=== PATIENT | female | born 1990 | race African-American/Black ===

== ENCOUNTER 2018-08-13 20:46 | Inpatient (IN) ==
[2018-08-13] MEDS ORDERED: DUONEB (A & A) INH ONE (22:44)
[2018-08-13] MEDS ORDERED: NS 1,000 ML IV ONE (22:44)
[2018-08-13 23:58] LABS: HEMATOCRIT 34.9 % (37.0-47.0); HEMOGLOBIN 11.5 g/dL (12.0-16.0); LYMPH% 49.7 % (20.5-51.1); MCH 27.9 PG (27-31); MCV 84.7 FL (81-99); MPV 9.2 FL (7.4-10.4); NEUT% 43.2 % (42.2-75.2); PLT 354 X1000 (130-400); RBC 4.12 XMIL (4.2-5.4); RDW 12.9 % (11.5-14.5); WBC 10.76 X1000 (4.8-10.8)
[2018-08-13 23:59] LABS: BASO# 0.05 X1000 (0.0-0.2); BASO% 0.5 % (0.0-0.8); EOS# 0.28 X1000 (0.0-0.7); EOS% 2.6 % (0.0-10.0); IMM GRAN# 0.01 X1000 (0.0-0.04); IMM GRAN% 0.1 % (0.0-0.5); LYMPH# 5.35 X1000 (1.2-3.4); MONO# 0.42 X1000 (0.11-0.59); MONO% 3.9 % (1.7-9.3); NEUT# 4.65 X1000 (1.4-6.5)
[2018-08-14 00:21] LABS: AGAP 13; ALKALINE PHOSPHATASE 74 U/L (32-104); BUN 13 mg/dL (8-22); CALCIUM 9.1 mg/dL (8.8-10.2); CHLORIDE 102 mmol/L (98-107); COSMO 281; CREATININE 0.5 mg/dL (0.5-0.9); ESTIMATED GFR > 60; GLUCOSE 155 mg/dL (70-104); GOT 19 U/L (10-30); GPT 26 U/L (10-36); POTASSIUM 4.4 mmol/L (3.5-5.1); SODIUM 139 mmol/L (136-145); TCO2 24 mmol/L (25-35); TOTAL PROTEIN 7.6 g/dL (6.3-8.3)
--- NOTE | 2018-08-14 01:11 | EKG Report ---
Test Performed on : 08/13/2018 9:47:33 PM Test Reason : chest pain Blood Pressure : / mmHG Vent. Rate : 108 BPM Atrial Rate : 108 BPM P-R Int : 148 ms QRS Dur : 090 ms QT Int : 366 ms P-R-T Axes : 067 026 014 degrees QTc Int : 490 ms Sinus tachycardia. Possible Left atrial enlargement Nonspecific T wave abnormality Abnormal ECG When compared with ECG of 26-MAR-2018 22:10, No significant change was found Unconfirmed Result
[2018-08-14] MEDS ORDERED: LEVAQUIN 750 MG/D5W 750 MG/150 ML IVPB IV ONE (02:07)
[2018-08-14] MEDS ORDERED: NS 1,000 ML IV ONE (02:19)
[2018-08-14] MEDS ORDERED: ZOFRAN IV PRN (02:19)
[2018-08-14] MEDS ORDERED: TYLENOL PO PRN (02:19)
[2018-08-14] MEDS ORDERED: TORADOL IV PRN (02:19)
--- NOTE | 2018-08-14 02:24 | PROVIDER DOCUMENTATION ---
This chart was entered by Domenica Jones Scribe, acting as scribe for Edi Mcmahan MD. HPI-Respiratory General - General Chief Complaint: Chest Pain Stated Complaint: CHEST PAIN, SOB Time Seen by Provider: 08/13/18 22:31 Source: patient Allergies/Adverse Reactions: Patient Allergies Allergy/AdvReac Type Severity Reaction Status Date / Time No Known Allergies Allergy Verified 03/26/18 22:06 Home Medications: Home Medication List Medication Instructions Recorded Confirmed Last Taken Type Levofloxacin [Levaquin] 750 mg PO DAILY #15 tab 11/21/17 Unknown Rx Lisinopril [Zestril] 20 mg PO DAILY #30 tab 11/21/17 Unknown Rx Metformin [Glucophage] 500 mg PO BID #60 tab 11/21/17 Unknown Rx Acetaminophen [Tylenol] 500 mg PO Q4H PRN PRN #20 tablet 05/18/18 Unknown Rx Sulfamethoxazole/Trimethoprim 1 each PO BID #10 tablet 05/18/18 Unknown Rx [Bactrim Ds Tablet] Clindamycin [Cleocin] 150 mg PO Q6HR #30 cap 05/22/18 Unknown Rx Ibuprofen [Motrin] 800 mg PO Q8H PRN PRN #20 tab 05/22/18 Unknown Rx - History of Present Illness-Resp Nature of Presenting Problem: 28yof presents to ED cc SOB, chronic cough, fatigue and chest pain for last 3 nights that is worse when she is trying to sleep. Pt denies N/V/D or fever. Pt has hx of HTN and DM. Quality of Pain: reports: tightness Severity in ED: reports: mild Onset/Duration: reports: 3 days ago Timing: reports: still present, changing over time Cough Quality/Degree: reports: moderate Current Respiratory Medication Therapy: Initiated see nurses note Modifying Factors: worse with: exertion, coughing, lying down Associated Symptoms: reports: chest pain/soreness, cough, shortness of breath Similar Symptoms Previously?: No Recently seen or treated by another doctor?: No Review of Systems - Adult - REVIEW OF SYSTEMS - ADULT Constitutional: reports: see HPI, fatique. denies: chills, fever Eyes: reports: no symptoms reported Ears, Nose, Mouth & Throat: reports: no symptoms reported Cardiovascular: reports: see HPI, chest pain. denies: heart murmur, syncope Respiratory: reports: see HPI, chronic cough, shortness of breath. denies: excessive sputum production, hemoptysis Gastrointestinal: reports: no symptoms reported Genitourinary: reports: no symptoms reported Musculoskeletal: reports: no symptoms reported Integumentary: reports: no symptoms reported Neurological: reports: no symptoms reported Psychiatric: reports: no symptoms reported Endocrine: reports: no symptoms reported Hematologic/Lymphatic: reports: no symptoms reported Allergic/Immunologic: reports: no symptoms reported All Other Systems: Reviewed and Negative Past History - Adult - PAST MEDICAL HISTORY-ADULT Review of Records: reports: Nursing Assessment Review, Medications Reviewed, Social history reviewed & non-contributory. Major Childhood Illnesses: reports: denies history Cardiovascular: reports: denies history Respiratory: reports: denies history Gastrointestinal: reports: denies history Obstetrical/Gynecological: reports: denies history Genitourinary: reports: denies history Musculoskeletal: reports: chronic pain Neurological: reports: headaches/migraines Endocrine/Immune: reports: Diabetes (gestational only) Other Conditions: reports: denies history - PRIOR SURGERIES/PROCEDURES Surgical/Procedure History: reports: none - IMMUNIZATION STATUS Childhood Immunizations: See Nurse Assessment Flu Vaccine: See Nurse Assessment - FAMILY HISTORY Family History: reviewed, not pertinent - SOCIAL HISTORY Smoking: cigarettes, greater than 1 pack/day Provider spent 3-5 mins advising pt. on dangers of tobacco.: Discussed manners to quit use, and f/u contacts for add'l counseling. Physical Exam-General - PHYSICAL EXAM-ADULT Initial Vital Signs Reviewed: Yes - CONSTITUTIONAL General Appearance: appears well, alert. negative: anxious, combative - EYES Eyes: PERRL/EOMI, pink conjunctivae. negative: photophobia - HEAD, EARS, NOSE, MOUTH & THROAT HENMT: moist mucous membranes, normal ENT inspection. negative: angioedema - NECK Neck: non-tender, full range of motion, supple, normal inspection. negative: Brudzinski's sign, carotid bruit - CARDIOVASCULAR Cardiovascular: normal peripheral pulses, no edema, no gallop, no JVD, no murmur , tachycardia. negative: regular rate, rhythm, bradycardia - GASTROINTESTINAL (ABDOMEN) Abdominal Exam: normal bowel sounds, non tender, soft, no organomegaly. negative: rigid, rebound, tenderness - LYMPHATIC Lymphatic: no adenopathy. negative: striations - MUSCULOSKELETAL Back Exam: normal inspection. negative: swelling Extremity: normal range of motion, normal inspection. negative: deformity - SKIN Integumentary: normal color, normal turgor, warm/dry. negative: diaphoresis, jaundice - NEUROLOGIC Neurologic: science intern II-XII nml as tested, grossly normal, no motor/sensory deficits. negative: facial droop, focal weakness - PSYCHIATRIC Psych/Mental Status: normal mood/affect, normal thought content, normal thought process, oriented x 3. negative: anxious Progress - PLAN OF CARE/RESULTS Progress/Plan/Lab Results: Vital Signs - 8 hr 08/13/18 21:15 08/13/18 21:20 08/13/18 22:45 Temperature 98.6 F Pulse Rate 110 H 108 H Respiratory Rate 20 22 Blood Pressure 131/82 O2 Sat by Pulse Oximetry 95 91 L 08/13/18 23:20 Temperature Pulse Rate 103 H Respiratory Rate Blood Pressure O2 Sat by Pulse Oximetry 93 L Bedside Urine ED: Urine Bedside Start: 08/13/18 23:34 Freq: ORDERED Status: Active Protocol: Activity Type Activity Date Activity User E-Sign Co-Sign Detail Recorded Client Recorded Date Recorded By Document 08/14/18 00:19 [id number] 08/14/18 00:22 [id number] 08/14/18 00:19 Point of Care [Bedside Point of Care] -Lot # [id number] - Results Negative -Control Line Visible? Yes Laboratory Results - last 24 hr 08/13/18 08/13/18 08/13/18 00:16 22:44 23:30 WBC RBC Hgb Hct MCV MCH MCHC RDW Std Deviation Plt Count MPV Immature Gran % (Auto) Neut % (Auto) Lymph % (Auto) Lincoln % (Auto) Eos % (Auto) Baso % (Auto) Immature Gran # (Auto) Neut # (Auto) Lymph # (Auto) Lincoln # (Auto) Eos # (Auto) Baso # (Auto) D-Dimer, Quantitative 3.10 H Sodium Potassium Chloride Carbon Dioxide Anion Gap BUN Creatinine Estimated GFR/1.73 m2 BUN/Creatinine Ratio Glucose POC Glucose 146 H Calculated Osmolality Calcium Total Bilirubin AST ALT Alkaline Phosphatase Troponin T < 0.010 Total Protein Albumin Globulin Albumin/Globulin Ratio 08/13/18 08/13/18 23:30 23:30 WBC 10.76 RBC 4.12 L Hgb 11.5 L Hct 34.9 L MCV 84.7 MCH 27.9 MCHC 33.0 RDW Std Deviation 12.9 Plt Count 354 MPV 9.2 Immature Gran % (Auto) 0.1 Neut % (Auto) 43.2 Lymph % (Auto) 49.7 Lincoln % (Auto) 3.9 Eos % (Auto) 2.6 Baso % (Auto) 0.5 Immature Gran # (Auto) 0.01 Neut # (Auto) 4.65 Lymph # (Auto) 5.35 H Lincoln # (Auto) 0.42 Eos # (Auto) 0.28 Baso # (Auto) 0.05 D-Dimer, Quantitative Sodium 139 Potassium 4.4 Chloride 102 Carbon Dioxide 24 L Anion Gap 13 BUN 13 Creatinine 0.5 Estimated GFR/1.73 m2 > 60 BUN/Creatinine Ratio 26 Glucose 155 H POC Glucose Calculated Osmolality 281 Calcium 9.1 Total Bilirubin 0.50 AST 19 ALT 26 Alkaline Phosphatase 74 Troponin T Total Protein 7.6 Albumin 4.0 Globulin 4.0 Albumin/Globulin Ratio 1.0 Orders Category Date Time Status Admit - [facility] Routine AdmDCTranf 08/14/18 02:19 Active Activity - Bed Rest with BRP ORDERED Care 08/14/18 02:19 Active Call Admitting on Arrival AT ADMISSION Care 08/14/18 02:20 Active ED: Urine Bedside ORDERED Care 08/13/18 23:34 Active FSBS/Accucheck Result NOW Care 08/13/18 22:44 Active Resuscitation Status Routine Care 08/14/18 02:19 Ordered Saline Loc DIRECTED Care 08/14/18 02:19 Active Vital Signs Order ROUTINE Care 08/14/18 02:19 Active Z-Document. for Tele Applied ORDERED Care 08/14/18 02:20 Active Regular Diet Diet 08/14/18 02:[address] ANGIOGRM PULMONARY ARTERIES [CT] Stat Exams 08/14/18 00:43 Ordered cxr [CHEST-1 VIEW] [RAD] Stat Exams 08/13/18 22:44 Taken BLOOD CULTURE [BLDCUL] Stat Lab 08/14/18 02:08 Ordered CBC WITH ELECTRONIC DIFF [HEME] Stat Lab 08/13/18 23:30 Completed CK PROFILE [SP CHEM] Stat Lab 08/14/18 02:18 Ordered COMPREHENSIVE METABOLIC PANEL [CHEM] Stat Lab 08/13/18 23:30 Completed D-DIMER [COAG] Stat Lab 08/14/18 00:10 Completed LACTATE, PLASMA [CHEM] Lab 08/14/18 02:30 Uncollected LACTATE, PLASMA [CHEM] Lab 08/14/18 05:30 Uncollected LACTATE, PLASMA [CHEM] Lab 08/14/18 08:30 Uncollected PROTIME WITH INR [COAG] Stat Lab 08/14/18 02:18 Ordered PTT [COAG] Stat Lab 08/14/18 02:18 Ordered TROPONIN T Stat Lab 08/13/18 23:30 Completed TROPONIN T Stat Lab 08/14/18 02:[address] W/POSS RFLX CULT [URINALYSIS] Stat Lab 08/14/18 02:18 Uncollected 0.9% Sodium Chloride Inj [Ns] 1,000 ml Med 08/14/18 02:19 Ordered IV 100 mls/hr 0.9% Sodium Chloride Inj [Ns] 1,000 ml Med 08/13/18 22:44 Discontinued IV 999 mls/hr Acetaminophen [Tylenol] Med 08/14/18 02:19 Ordered 650 mg PO Q6H PRN PRN Albuterol 2.5MG/Ipratrop 0.5MG [Duoneb (A & A)] Med 08/13/18 22:44 Discontinued 3 ml INH NOW ONE Ketorolac [Toradol] Med 08/14/18 02:19 Ordered 15 mg IV Q4H PRN PRN Levofloxacin 750 mg/D5w [Levaquin 750 mg/D5w] Med 08/14/18 02:07 Active 750 mg in 150 ml IV NOW Morphine Med 08/14/18 02:19 Ordered 2 mg IV Q2H PRN PRN Ondansetron [Zofran] Med 08/14/18 02:19 Ordered 4 mg IV Q4H PRN PRN Aerosol Treatments Routine Oth 08/13/18 22:45 Completed Aerosol Treatments Stat Oth 08/13/18 22:45 Completed Oxygen Device Routine Oth 08/14/18 02:20 Active Telemetry [OM.EQ] Routine Oth 08/14/18 02:19 Active EKG [EKG] Stat Ther 08/13/18 21:20 Draft Transfer/Admit Order [TRANSFER] Routine Transfer 08/14/18 02:22 Ordered Result Diagrams: 08/13/18 23:30 08/13/18 23:30 - EKG 1 Time of EKG reading by physician:: 23:00 EKG Read and Signed by:: Edi Mcmahan EKG Interpretation (*Must complete 3 of following elements*): Abnormal (possible left atrial enlargement) Rate: 108 Rhythm: sinus tachycardia QRS: normal ST Wave: non-specific ST changes Departure - Departure Date of Disposition Decision: 08/14/18 Time of Disposition Decision: 02:23 DIAGNOSIS: Pneumonia Qualifiers: Pneumonia type: due to unspecified organism Laterality: right Lung location: upper lobe of lung Qualified Code(s): J18.1 - Lobar pneumonia, unspecified organism Disposition: ADMITTED INPATIENT 09 Certified Medical Emergency: Emergent Condition: Stable Referrals and Follow-Ups: None,PCP [Primary Care Provider] - - Critical Care Note This patient required my direct & personal management of CC.: No Attestation - Physician/ FAUSTO Attestation Patient care was provided by Advanced Practice Provider:: No The physician spent face to face time with patient:: Yes Advanced Practice Provider documentation review:: Supervising physician onsite and consulted in the evaluation and care of this patient. The physician did have a face to face encounter with the patient. This chart was documented by the indicated scribe, (Domenica Jones Scribe) and accurately reflects the services I performed and decisions made by me, Edi Mcmahan MD, as attested by the provider's signature.
[2018-08-14 02:37] LABS: INR 0.92; PROTIME 12.8 Seconds (11.0-16.0)
[2018-08-14 02:38] LABS: PTT 28.5 Seconds (22.3-41.8)
[2018-08-14 03:30] LABS: BILIRUBIN URINE NEGATIVE (NEGATIVE); BLOOD URINE NEGATIVE (NEGATIVE); CLARITY CLEAR (CLEAR); COLOR YELLOW; GLUCOSE URINE NEGATIVE (NEGATIVE); KETONE URINE NEGATIVE (NEGATIVE); PROTEIN URINE TRACE mg/dL (NEGATIVE); URINE EPITHELIAL CELLS >10 /HPF (<10); URINE RBC <10 /HPF (<10); URINE SOURCE CLEAN CATCH; URINE WBC <10 /HPF (<10); UROBILINOGEN URINE NORMAL
[2018-08-14 03:31] LABS: LEUKOCYTES URINE NEGATIVE (NEGATIVE); NITRITE URINE NEGATIVE (NEGATIVE)
[2018-08-14] MEDS: MORPHINE IV PRN ×3 (06:00→20:33)
--- NOTE | 2018-08-14 07:30 | Diag Imaging Result Doc PS360 ---
EXAM: CT ANGIOGRAM PULMONARY ARTERIES - 08/14/2018 HISTORY: difficulty breathing, left arm swollen TECHNIQUE: CT angiogram pulmonary arteries with intravenous contrast. Axial, 2-D coronal, and 3-D MIP images are obtained. COMPARISON: 03/27/2018 FINDINGS: Pulmonary artery opacification is mildly suboptimal, and there are artifacts from motion which limit detail at the lung bases. There are no filling defects identified in the pulmonary arteries. There is no indication of aortic dissection. Heart size is enlarged increased from prior. There are relatively diffuse groundglass pulmonary opacities most prominent at the lower lobes. There is some patchy pulmonary opacities at the right upper lobe. There are small bilateral pleural effusions. These findings suggest pulmonary edema/congestive heart failure. There is mild prominence of bilateral axillary lymph nodes. IMPRESSION: No evidence of pulmonary embolism. Findings which are suggestive of pulmonary edema/congestive heart failure. Pneumonia is not excluded, however. Mildly prominent bilateral axillary lymph nodes. The montessori preschool teacher radiologist provided preliminary results at 1:41 AM on 08/14/2018. Electronically signed by Gary Teran 08/14/2018 7:28 AM
--- NOTE | 2018-08-14 07:33 | Diag Imaging Result Doc PS360 ---
EXAM: CHEST-1 VIEW - 08/13/2018 HISTORY: sob TECHNIQUE: Portable chest COMPARISON: 11/18/2017 FINDINGS: Heart size appears enlarged and increased from prior. Inspiration is mildly shallow. There are ill-defined bilateral pulmonary opacities. There is no large pleural effusion or pneumothorax identified. IMPRESSION: Findings which may relate to pulmonary edema/congestive heart failure. Pneumonitis is not excluded, however. Electronically signed by Gary Teran 08/14/2018 7:30 AM
[2018-08-14] MEDS ORDERED: LASIX IV ONE (09:58)
[2018-08-14] MEDS ORDERED: MORPHINE IV ONE (10:02)
--- NOTE | 2018-08-14 10:04 | EKG Report ---
Test Performed on : 08/14/2018 09:22:57 AM Test Reason : CP, dyspnea Blood Pressure : / mmHG Vent. Rate : 103 BPM Atrial Rate : 103 BPM P-R Int : 152 ms QRS Dur : 090 ms QT Int : 376 ms P-R-T Axes : 076 047 063 degrees QTc Int : 492 ms Sinus tachycardia. Otherwise normal ECG When compared with ECG of 13-AUG-2018 21:47, (Unconfirmed) T wave inversion no longer evident in Inferior leads Unconfirmed Result
[2018-08-14 10:11] LABS: BASO# 0.04 X1000 (0.0-0.2); BASO% 0.3 % (0.0-0.8); EOS# 0.11 X1000 (0.0-0.7); EOS% 0.7 % (0.0-10.0); HEMOGLOBIN 10.9 g/dL (12.0-16.0); IMM GRAN# 0.03 X1000 (0.0-0.04); IMM GRAN% 0.2 % (0.0-0.5); LYMPH# 3.31 X1000 (1.2-3.4); LYMPH% 22.3 % (20.5-51.1); MCH 28.1 PG (27-31); MCV 85.1 FL (81-99); MONO# 0.52 X1000 (0.11-0.59); MONO% 3.5 % (1.7-9.3); MPV 9.3 FL (7.4-10.4); NEUT# 10.82 X1000 (1.4-6.5); PLT 342 X1000 (130-400); RBC 3.88 XMIL (4.2-5.4); RDW 12.7 % (11.5-14.5); WBC 14.83 X1000 (4.8-10.8)
[2018-08-14 10:22] LABS: AGAP 10; ALBUMIN 3.7 g/dL (3.5-5.0); ALKALINE PHOSPHATASE 69 U/L (32-104); BUN 10 mg/dL (8-22); CALCIUM 8.4 mg/dL (8.8-10.2); CHLORIDE 104 mmol/L (98-107); CK PROFILE 106 U/L (24-173); COSMO 277; CREATININE 0.4 mg/dL (0.5-0.9); ESTIMATED GFR > 60; GLUCOSE 175 mg/dL (70-104); GOT 15 U/L (10-30); GPT 23 U/L (10-36); POTASSIUM 4.4 mmol/L (3.5-5.1); SODIUM 137 mmol/L (136-145); TCO2 24 mmol/L (25-35); TOTAL PROTEIN 7.2 g/dL (6.3-8.3)
[2018-08-14] MEDS ORDERED: HUMALOG (PARKWAY) SUBQ SCH (11:00)
[2018-08-14 11:08] LABS: BE 1.9 mmoll (-3.0-3.0); BLOOD TYPE ARTERIAL; HCO3-(ACT) 26.3 mmoll (20.0-26.0); O2(CT) 16.7 mL/dL (15.0-23.0); O2HB 94.5 % (95.0-99.0); PCO2(98.6) 41 mmHg (35-45); PO2(98.6) 79 mmHg (60-100); SAMPLE BLOOD; SAO2 98.2 % (95.0-100.0); THB 12.5 g/dL (11.5-17.4); pH(98.6) 7.42 (7.35-7.45)
[2018-08-14 11:10] LABS: ALLEN TEST YES; MODALITY HIGH FLOW NASAL CAN
[2018-08-14] MEDS: ROCEPHIN 1 GM in NS 50 ML IV SCH (12:19)
[2018-08-14] MEDS: HUMALOG SUBQ SCH ×3 (12:21→20:14)
[2018-08-14] MEDS: ZITHROMAX PO SCH (12:53)
[2018-08-14] MEDS ORDERED: NS NEB INH SCH (13:00)
--- NOTE | 2018-08-14 13:34 | HISTORY AND PHYSICAL ---
CHIEF COMPLAINT: Shortness of breath. HISTORY OF PRESENT ILLNESS: This is a 28-year-old female with a history of insulin-dependent diabetes mellitus, hypertension, obesity, chronic tobacco use and abuse. She presents to the emergency room complaining of shortness of breath. In talking to the patient and her sister, they state that she started complaining of shortness of breath about 4 to 6 weeks ago. This was noted with exertion. It did subside with slowing down at that time. During this time she has had intermittent lower extremity edema. She stated at 1st she could prop her legs up and edema would subside over time, but over the last 2 to 3 weeks she has had persistent lower extremity edema. She has felt that her abdomen was bloated with persistent dyspnea on exertion that has progressed to persistent shortness of breath at rest. She describes episodes of PND over the last 4 to 5 days. Her sister said that at work yesterday she kept leaning over on the counters to catch her breath. She denied any fevers or chills. FAMILY: The patient does have a family history of heart disease and of note her mother does have diastolic heart failure. PAST MEDICAL HISTORY: 1. Insulin-dependent diabetes mellitus. 2. Hypertension. 3. Tobacco use and abuse. PAST SURGICAL HISTORY: She has had 2 vaginal deliveries. SOCIAL HISTORY: She smokes about a pack a day. She denies alcohol use. She lives with her sister and her mother. She does have 2 children that are under the age of 5. ALLERGIES: No known drug allergies. HOME MEDICATIONS: A list will be obtained by the nursing staff. Once verified, we will review and restart as appropriate. REVIEW OF SYSTEMS: Discussed with the patient with pertinent positives stated in the HPI. She denied any syncope, dizziness, any palpitations, nausea, vomiting, diarrhea, any black or bloody vomitus or stools, any hematuria, dysuria, frequency, urgency. PHYSICAL EXAMINATION: GENERAL: This is a 28-year-old female who is sitting up at approximately 90 degree angle on the bed in ICU in distress. VITAL SIGNS: Blood pressure is 131/70 with a heart rate around 112, respiratory rate is averaging between 40 to 46. This is on 5 L nasal cannula. Temperature is 97.8 degrees oral. EYES: Pupils equal, round, react to light. EOMs are intact. Sclerae anicteric. HEENT: Head is normocephalic, atraumatic. Mucous membranes are dry. NECK: Supple with trachea midline. CARDIOVASCULAR: Regular rate and rhythm. S1 and S2 are appreciated. No S3, no murmur. She has bilateral pretibial and pedal edema. Calves are nontender to palpation with peripheral pulses palpable x4 extremities. PULMONARY: She does have some expiratory wheezes, crackles, from about mid lungs down bilateral. She does have increased work of breathing. Chest rises and falls symmetric with respirations. GASTROINTESTINAL: Abdomen is large, soft, nontender, nondistended. Bowel sounds in all 4 quadrants. NEUROLOGIC: She is alert oriented x3. SKIN: Warm and dry. LABS: WBC is 10.7 with hemoglobin 11.5, hematocrit 34.9, and platelets of 354,000. D-dimer is 3.10. Sodium 139, potassium 4.4, BUN 13, creatinine 0.5 with a glucose of 155. Troponin was negative. Blood cultures are pending. CTA pulmonary revealed no evidence of pulmonary embolism. Findings suggestive of pulmonary edema and/or congestive heart failure. Pneumonia is not excluded. Mildly prominent bilateral axillary lymph nodes. ASSESSMENT AND PLAN: 1. Shortness of breath. 2. Pulmonary edema versus congestive heart failure. We are obtaining a stat echocardiogram cautery. Cardiology has been consulted. She has been given 60 mg of Lasix. Saldana will be placed for act for accurate I O. She will be placed on daily weights. 3. Pneumonia. Blood cultures have been obtained. We will start antibiotic coverage of Rocephin and Zithromax and any further antibiotics will be culture driven. 4. Diabetes mellitus type 2. She will be placed on patterned blood glucose with sliding scale insulin. 5. Chronic tobacco abuse. The patient has been counseled on the perils of continuing to smoke. She will be given written materials for smoking cessation. 6. Hypertension aware. 7. The patient has been admitted to ICU at [facility]. She will be transferred to ICU at [facility] for Cardiology and pulmonology following. 8. Deep venous thrombosis prophylaxis we will use Lovenox. 9. Further treatments pending hospital course. Dictated by DAVIS Escudero for Piotr Stevenson MD cc: DAVIS Escudero MD
[2018-08-14] MEDS: COZAAR PO SCH (14:20)
[2018-08-14] MEDS: COREG PO SCH ×2 (14:20→20:13)
[2018-08-14 14:21] LABS: UR AMPHETAMINES QUAL NONE DETECTED (NONE DETECT); UR BARBITUATES QUAL NONE DETECTED (NONE DETECT); UR BENZODIAZEPIN QUAL NONE DETECTED (NONE DETECT); UR CANNABINOIDS QUAL PRESUMPTIVE POSITIVE (NONE DETECT); UR COCAINE QUAL NONE DETECTED (NONE DETECT); UR METHADONE QUAL NONE DETECTED (NONE DETECT); UR OPIATES QUAL PRESUMPTIVE POSITIVE (NONE DETECT); UR OXYCODONE QUAL NONE DETECTED (NONE DETECT); UR PCP QUAL NONE DETECTED (NONE DETECT)
--- NOTE | 2018-08-14 14:27 | ECHO REPORT ---
ORDER DATE: 08/14/2018 ECHOCARDIOGRAPHIC MEASUREMENTS: 1. Interventricular septum 1.4 2. Left ventricular posterior wall 1.2, diastolic diameter 6.6. 3. Left atrium 4.9. 4. Aorta 2.7. SUMMARY OF THE 2-DIMENSIONAL IMAGIN. Tricuspid valve was normal. 2. Pulmonic valve was normal. There is trace pulmonary regurgitation. 3. Aortic valve leaflets are trileaflet.There was no aortic stenosis or regurgitation. 4. Mitral valve leaflets were normal. There is moderate mitral regurgitation. 5. Left ventricle is dilated with an estimated ejection fraction of 35%. There is global hypokinesis. 6. There is mild tricuspid regurgitation. Peak velocity across the tricuspid valve was 4 m/sec. 7. Pulmonary artery systolic pressure of 74 mmHg. There is pulmonary hypertension. 8. There is no pericardial effusion or obvious intracardiac mass or thrombus seen. cc: MD Shanon Shepherd CRNP MTDD
[2018-08-14] MEDS: XOPENEX NEB INH SCH ×3 (15:16→23:23)
[2018-08-14 17:11] LABS: URINE SOURCE CATH
[2018-08-14 17:14] LABS: BILIRUBIN URINE NEGATIVE (NEGATIVE); BLOOD URINE MODERATE (NEGATIVE); COLOR ORANGE; GLUCOSE URINE NEGATIVE (NEGATIVE); KETONE URINE NEGATIVE (NEGATIVE); LEUKOCYTES URINE LARGE (NEGATIVE); NITRITE URINE NEGATIVE (NEGATIVE); PH URINE 6.5; PROTEIN URINE NEGATIVE (NEGATIVE); SP GRAVITY URINE 1.009; TURBIDITY URINE CLEAR (CLEAR); UROBILINOGEN URINE NORMAL (NORMAL)
[2018-08-14 17:20] LABS: UR EPITHELIAL CELLS <10 /HPF (<10); URINE BACTERIA NEGATIVE /HPF; URINE RBC TNTC /HPF (<10)
--- NOTE | 2018-08-14 17:27 | CONSULTATION ---
DATE OF CONSULTATION: 08/14/2018 CARDIOLOGY CONSULTATION: IMPRESSION: 1. [id number] systolic heart failure. 2. Dilated cardiomyopathy with left ventricular ejection fraction appearing to be less than 40% with moderate mitral regurgitation. Moderate left ventricular enlargement demonstrated. There is also moderate tricuspid regurgitation with estimated systolic pulmonary pressure of 70 mmHg suggesting pulmonary hypertension. 3. Obesity. 4. Type 2 diabetes mellitus. 5. Hypertension. 6. Chronic cigarette use. RECOMMENDATIONS: 1. Diurese with intravenous Lasix as you are doing. 2. Switch from lisinopril to losartan low dose. 3. Initiate low-dose Coreg. 4. Follow up official echocardiogram report. 5. Ultimately may screen for coronary artery disease with Lexiscan sestamibi study in a few days. I suspect it is very likely that her cardiomyopathy is nonischemic in origin. 6. Check thyroid function studies. HISTORY: This 28-year-old, female with past history of obesity, type 2 diabetes mellitus, and hypertension was admitted on transfer from [facility] for further management of congestive heart failure. She has a several-month history of tendency for shortness of breath. She has had several emergency room visits. She has not had any chest pain. Over the past week, she has had considerable increase in tendency for shortness of breath and started to develop significant orthopnea. With worsening shortness of breath, she came to the emergency room at [facility] and was found to have evidence of congestive heart failure/pulmonary edema. Chest CT scan revealed no evidence of pulmonary embolus. She relates that her blood pressure has tended to be reasonably well controlled. She has had some chronic cough mostly in the morning with some occasional production of clear sputum. PAST MEDICAL HISTORY: 1. Obesity. 2. Type 2 diabetes mellitus. 3. Hypertension. 4. Migraine headaches. PAST SURGICAL HISTORY: None. ALLERGIES: She has no known drug allergies. MEDICATIONS PRIOR TO ADMISSION: As listed. SOCIAL HISTORY: She is . She has 2 children, ages 7 and 4. She smokes 1 pack of cigarettes per day. She does not use alcohol. FAMILY HISTORY: Negative for premature coronary disease. REVIEW OF SYSTEMS: Pulmonary: Noteworthy for dyspnea and chronic cough. Gastrointestinal: Noteworthy for some nausea with her recent symptoms. There has been no melena or bright red blood per rectum. Constitutional: Negative for fever. Remainder of review of systems negative/noncontributory with 14 total systems reviewed. PHYSICAL EXAMINATION: General: Reveals an obese, adult female in no distress. Vital signs: Blood pressure 138/86, heart rate 110 and regular with ECG monitor showing sinus tachycardia. HEENT: Extraocular movements appear intact. Mucous membranes moist. Neck: Supple without jugular venous distention. Lungs: Auscultation of chest. Reveals scant inspiratory crackles in the bases. Cardiac Exam: Reveals a regular rate and rhythm without appreciable murmur or gallop. Abdomen: Soft. Bowel sounds are normal. Extremities: Without edema. Neurologic: Reveals her to be alert and fully oriented. Speech is fluent. She moves all 4 extremities equally well. Skin: Warm and dry. Psychiatric: Reveals her mood to be appropriate. PERTINENT DATA: Twelve-lead EKG demonstrates sinus tachycardia but is otherwise within normal limits. LABORATORY DATA: Includes a sodium 137, potassium 4.4, chloride 104, carbon dioxide 24, BUN 10, creatinine 0.4, glucose 175. Pro B-natriuretic peptide level 1529. CPK 106. Troponin T less than 0.01. White blood cell count 14.83, hematocrit 33, hemoglobin 10.9, platelet count 342,000. cc: Esteban Turcios MD
--- NOTE | 2018-08-14 20:03 | HISTORY AND PHYSICAL ---
ADDENDUM: Patient is a young 28-year-old female who is very pleasant. She currently is in moderate respiratory distress. She was admitted with pneumonia. She was requiring oxygen Ventimask. We will place her on antibiotics. Place her in the ICU and follow. cc: Piotr Stevenson MD
[2018-08-14] MEDS: LASIX IV SCH (20:13)
[2018-08-15 06:29] LABS: BASO# 0.03 X1000 (0.0-0.2); BASO% 0.3 % (0.0-0.8); EOS# 0.34 X1000 (0.0-0.7); EOS% 3.3 % (0.0-10.0); HEMATOCRIT 35.3 % (37.0-47.0); HEMOGLOBIN 11.9 g/dL (12.0-16.0); IMM GRAN# 0.02 X1000 (0.0-0.04); IMM GRAN% 0.2 % (0.0-0.5); LYMPH# 3.58 X1000 (1.2-3.4); LYMPH% 35.2 % (20.5-51.1); MCH 28.5 PG (27-31); MCHC 33.7 g/dL (33-37); MCV 84.7 FL (81-99); MONO# 0.46 X1000 (0.11-0.59); MONO% 4.5 % (1.7-9.3); MPV 9.5 FL (7.4-10.4); NEUT# 5.73 X1000 (1.4-6.5); NEUT% 56.5 % (42.2-75.2); PLT 358 X1000 (130-400); RBC 4.17 XMIL (4.2-5.4); RDW 12.8 % (11.5-14.5); WBC 10.16 X1000 (4.8-10.8)
[2018-08-15] MEDS: HUMALOG SUBQ SCH ×4 (06:44→20:13)
[2018-08-15 06:54] LABS: AGAP 14; ALB/GLOB RATIO 0.9; ALBUMIN 3.7 g/dL (3.5-5.0); ALKALINE PHOSPHATASE 77 U/L (32-104); BUN 13 mg/dL (8-22); CALCIUM 9.4 mg/dL (8.8-10.2); CHLORIDE 99 mmol/L (98-107); COSMO 280; CREATININE 0.6 mg/dL (0.5-0.9); ESTIMATED GFR > 60; GLUCOSE 167 mg/dL (70-104); GOT 19 U/L (10-30); GPT 24 U/L (10-36); MAGNESIUM 1.8 mg/dL (1.5-2.7); POTASSIUM 3.7 mmol/L (3.5-5.1); SODIUM 138 mmol/L (136-145); TCO2 25 mmol/L (25-35); TOTAL BILIRUBIN 1.18 mg/dL (0.20-1.00)
[2018-08-15 07:02] LABS: HEMOGLOBIN A1C 8.6 % (4.8-6.0)
[2018-08-15] MEDS: XOPENEX NEB INH SCH ×5 (07:47→23:20)
--- NOTE | 2018-08-15 07:51 | Diag Imaging Result Doc PS360 ---
CHEST-PORTABLE - 08/15/2018 INDICATION: pulmonary edema COMPARISON: 08/14/2018 FINDINGS: Stable low lung volumes. Stable cardiomegaly and pulmonary vascular congestion. There is improvement in the ill-defined interstitial infiltrate bilaterally compatible with improved pulmonary edema. IMPRESSION: Improvement in the pulmonary edema. Electronically signed by Emery Solis 08/15/2018 7:49 AM
[2018-08-15] MEDS: LASIX IV SCH (08:28)
[2018-08-15] MEDS: COZAAR PO SCH (08:28)
[2018-08-15] MEDS: ZITHROMAX PO SCH (08:28)
[2018-08-15] MEDS: LOVENOX SUBQ SCH (08:28)
[2018-08-15] MEDS: COREG PO SCH ×2 (08:28→20:27)
[2018-08-15] MEDS: MORPHINE IV PRN ×3 (08:46→20:27)
--- NOTE | 2018-08-15 09:43 | PROGRESS NOTE ---
DATE: 08/15/2018 SUBJECTIVE: This patient is breathing much better. She has no complaint of chest pain or shortness of breath at this moment. So far, we have a negative balance of 6.4 L in the past 24 hours. I explained in detail to the patient diet, which is low salt and heart healthy, diabetes control, hypertension management, and decreased weight to the patient. She seems to understand. We talked about CHF as well. OBJECTIVE: Vital Signs: Temperature 98.2 degrees, pulse 90, respiratory rate 22, blood pressure 115/75, and oxygen saturation 100% on 3 L of nasal cannula. HEENT: Head normocephalic. No trauma. PERRLA. Neck: Supple. No JVD. No masses. Central trachea. Chest: Clear to auscultation with some rales at the bases. Cardiovascular: RRR. Abdomen: Soft, nontender, and nondistended. No hepatosplenomegaly. Extremities: Trace pedal edema. No clubbing. No cyanosis. Neurological: The patient is alert and oriented x3. No focal neurological deficits. LABORATORY: WBC 10.1, hemoglobin 11.9, hematocrit 35.3, and platelets 358,000. Sodium 138, potassium 3.7, chloride 99, bicarbonate 25, BUN 13, creatinine 0.6, glucose 167, calcium 9.4, magnesium 1.8, and albumin 3.7. ASSESSMENT AND PLAN: 1. CHF exacerbation. As per the patient, she has never been diagnosed with CHF before. She has an ejection fraction of 35% with global hypokinesis. Also, she has pulmonary hypertension as well. She is feeling better. I will continue with the same management. Cardiology Department on board. 2. Type 2 diabetes, hemoglobin A1c around 8.6. As per the patient, she has been on metformin at home. Blood sugar stable. She needs to lose some weight. 3. Hypertension stable. Continue with same management. 4. Tobacco abuse. This patient has been highly advised against tobacco use. I will continue with daily cessation education. 5. Drug use, cannabinoids, aware. She has been advised against drug use. I will continue with daily cessation education. 6. Pulmonary hypertension. As per echocardiogram, her pulmonary artery systolic pressure is around 74 mmHg. We will continue with diuretics. CRITICAL CARE TIME: Critical care time and time explaining to the patient and family member at the bedside about the whole situation around 40 minutes. cc: Kerwin Doll MD
[2018-08-15] MEDS: ROCEPHIN 1 GM in NS 50 ML IV SCH (12:45)
--- NOTE | 2018-08-15 19:40 | PROGRESS NOTE ---
DATE: 08/15/2018 SUBJECTIVE: Patient denies shortness of breath or chest discomfort on supplemental oxygen per nasal cannula. OBJECTIVE: Vital Signs: Blood pressure 106/71, heart rate 91 and regular, oxygen saturation 98%. Neck: There is no significant jugular venous distention. Chest: Clear to auscultation. Cardiac: Reveals a regular rate and rhythm without appreciable murmur or gallop. Extremities: Without edema. LABORATORY DATA: Includes a white blood cell count 10.16, hematocrit 35.3, hemoglobin 11.9, platelet count 358,000. Sodium 138, potassium 3.7, chloride 99, carbon dioxide 25, BUN 13, creatinine 0.6. Albumin 3.7. Repeat chest x-ray demonstrates cardiomegaly and improvement in pulmonary edema. IMPRESSION: 1. Acute systolic heart failure. Patient improving with diuresis. 2. Dilated cardiomyopathy with left ventricular ejection fraction approximately 35% with moderate mitral regurgitation and moderate left ventricular enlargement. Patient also has pulmonary hypertension with estimated systolic PA pressure of 70 mmHg. 3. Obesity. 4. Type 2 diabetes mellitus. 5. Hypertension. 6. Chronic cigarette use. 7. Hidradenitis suppurativa. RECOMMENDATIONS: 1. Transition to oral Lasix. 2. Screen for coronary disease with Lexiscan sestamibi study. cc: Esteban Turcios [facility]
[2018-08-16 06:15] LABS: AGAP 14; ALBUMIN 3.8 g/dL (3.5-5.0); ALKALINE PHOSPHATASE 74 U/L (32-104); BUN 19 mg/dL (8-22); CALCIUM 8.9 mg/dL (8.8-10.2); CHLORIDE 98 mmol/L (98-107); COSMO 283; CREATININE 0.6 mg/dL (0.5-0.9); ESTIMATED GFR > 60; GLUCOSE 196 mg/dL (70-104); GOT 18 U/L (10-30); GPT 25 U/L (10-36); POTASSIUM 3.8 mmol/L (3.5-5.1); SODIUM 138 mmol/L (136-145); TCO2 26 mmol/L (25-35); TOTAL BILIRUBIN 0.42 mg/dL (0.20-1.00); TOTAL PROTEIN 7.6 g/dL (6.3-8.3)
[2018-08-16] MEDS: HUMALOG SUBQ SCH ×4 (06:36→20:53)
[2018-08-16] MEDS ORDERED: LEXISCAN ONE (08:20)
--- NOTE | 2018-08-16 09:35 | PROGRESS NOTE ---
DATE: 08/16/2018 SUBJECTIVE: This patient is complaining of some epigastric discomfort today and she is complaining of bilateral axillary pain. She has multiple nodules bilaterally at the level of the maxillary area and on the left side one of those nodules is draining pus, likely this is hidradenitis suppurative. I will start this patient on doxycycline and I will get surgery to evaluate this patient as well. OBJECTIVE: Vital Signs: Temperature 96.9 degrees, pulse 98, respiratory rate 23, blood pressure 91/64, oxygen saturation 96 on nasal cannula. HEENT: Head normocephalic, no trauma. PERRLA. Neck: Supple. No JVD. No masses. Central trachea. Chest: Chest clear to auscultation. Some rales at the bases. Axillary Area: Axillary area she has multiple nodules bilaterally. Some of then are painful to palpation. On the left side there is one that is draining pus. Abdomen: Soft. Some discomfort to palpation at the level of the epigastric area. Positive bowel sounds. Extremities: No edema, no clubbing, no cyanosis. Neurological: The patient is alert and oriented x3. No focal neurological deficits. LABORATORY: Sodium 138, potassium 3.8, chloride 98, bicarbonate 26, BUN 19, creatinine 0.6 glucose 196, calcium 8.9. ASSESSMENT AND PLAN: 1. Congestive heart failure exacerbation, acute. Her ejection fraction is around 35% with global hypokinesis. Also she has pulmonary hypertension. She is complaining of some chest discomfort today. She is scheduled to get a nuclear stress test today. Cardiology on board. 2. Type 2 diabetes. Hemoglobin A1c around 8.6. She has been on metformin at home. Blood sugar stable. Continue with the same management. She needs to lose some weight and follow a diet as well. Probably I will increase the dose of the metformin once she is goes home. 3. Bilateral hidradenitis suppurative. On the left side she is draining pus. I will get the surgery department to evaluate this patient. It looks like she has been with this problem for a very long time. I will start this patient on doxycycline. 4. Hypertension, stable. 5. Tobacco abuse. This patient has been highly advised against tobacco use. I will continue with daily cessation education. 6. Drug use, cannabinoids, aware. She has been advised against drug use. I will continue with daily cessation education as well. 7. Pulmonary hypertension. Per echocardiogram her pulmonary artery systolic pressure is around 74 mm Hg. We will continue with diuresis. 8. Possible gastroesophageal reflux disease , I will start this patient on proton pump inhibitor. cc: Kerwin Doll MD
[2018-08-16] MEDS: XOPENEX NEB INH SCH ×5 (09:51→23:33)
[2018-08-16] MEDS: MORPHINE IV PRN ×2 (11:16→20:42)
[2018-08-16] MEDS: DOXYCYCLINE 100 MG in NS 250 ML IV SCH ×2 (11:17→20:43)
[2018-08-16] MEDS: LOVENOX SUBQ SCH (11:17)
[2018-08-16] MEDS: LASIX PO SCH (11:18)
[2018-08-16] MEDS: COZAAR PO SCH (11:18)
[2018-08-16] MEDS: KLOR-CON PO SCH (11:18)
[2018-08-16] MEDS: COREG PO SCH ×2 (11:18→20:43)
--- NOTE | 2018-08-16 13:11 | Diag Imaging Result Document ---
PROCEDURE NAME: MYOCARDIAL PERF SCAN, STR/REST - 08/16/2018 INDICATION: Chest pain, dyspnea, heart failure. PROCEDURES PERFORMED: 1. Lexiscan stress. 2. One-day stress/rest myocardial perfusion imaging. PROCEDURE IN DETAIL: Ms. Handy was brought to the nuclear laboratory, and had a resting study with injection of 15.9 mCi of technetium-99m sestamibi with usual imaging protocol utilized. Subsequently, she was brought back and had a Lexiscan stress. At peak stress, was injected with 45.3 mCi of technetium-99m sestamibi with usual imaging protocol utilized. FINDINGS: LEXISCAN STRESS RESULTS: 1. Baseline EKG shows sinus rhythm. 2. Lexiscan stress did not demonstrate any clear evidence of ischemic-related EKG changes or significant arrhythmias. PERFUSION IMAGING RESULTS: 1. No evidence of abnormal extracardiac uptake. 2. TID ratio is 1.03. 3. Perfusion imaging seems to demonstrate 2 separate defects. The first is a moderate sized, moderate intensity, fixed defect in the mid and distal anterior septum. The second defect is moderate to large in size, [id number] in intensity, and located in the inferior lateral base to the inferolateral apex. It appears to improve somewhat on stress imaging. There does not appear to be any clear evidence of ischemic changes. 4. There is a reduction in LV systolic function with a calculated EF of 36%. There is global hypokinesis. Severe dilatation of the left ventricle with an end-diastolic volume of 343 and end-systolic volume 220. cc: MD Marisol Perry PA
--- NOTE | 2018-08-16 17:07 | PROGRESS NOTE ---
DATE: 08/16/2018 SUBJECTIVE: Patient denies shortness of breath or chest discomfort on room air. OBJECTIVE: Vital signs: Blood pressure 114/77, heart rate 95, oxygen saturation 98% on room air. Neck: There is no significant jugular distention. Chest: Clear to auscultation. Cardiac Exam: Reveals a regular rate and rhythm without appreciable murmur or gallop. Extremities: Without edema. LABORATORY DATA: Includes sodium 138, potassium 3.8, chloride 98, hematocrit 26, BUN 19 creatinine 0.6. Glucose 196. Lexiscan myocardial perfusion study noteworthy were the 4 left ventricular enlargement/dilatation and a calculated left ejection fraction 36%. Perfusion images demonstrate no convincing scintigraphic evidence of inducible myocardial ischemia. Study is most consistent with nonischemic cardiomyopathy. IMPRESSION: 1. Acute congestive heart failure, systolic. Patient improved clinically with diuresis. 2. Cardiomyopathy with left ventricular ejection fraction approximately 35%. Probably nonischemic in origin. 3. Type 2 diabetes mellitus. 4. Chronic cigarette use. 5. Obesity. 6. Bilateral hidradenitis suppurativa. RECOMMENDATIONS: 1. Continue current cardiovascular regimen unchanged with Coreg, losartan and daily Lasix. 2. Patient is clinically stable from a cardiovascular standpoint to be discharged to home. I will plan on seeing her for followup in 1 week and if she remains stable at that point allow her to return to work. 3. Group plans to have general surgery evaluate hidradenitis suppurativa. cc: Esteban Turcios MD
--- NOTE | 2018-08-17 00:35 | GENERAL SURGERY CONSULTATION ---
DATE: 08/16/2018 CHIEF COMPLAINT: Hidradenitis of the axilla. HISTORY OF PRESENT ILLNESS: This is a 28-year-old, female, admitted with shortness of breath. She has a history of diabetes, hypertension, chronic tobacco use, obesity. She also has hidradenitis. She is improved in the hospital for her fluid overload. I have been asked to see her about the purulent drainage from her axilla. PAST MEDICAL HISTORY: Her other medical problems include insulin-dependent diabetes, hypertension, tobacco use. PAST SURGICAL HISTORY: Includes vaginal deliveries. SOCIAL HISTORY: She smokes a pack per day. She lives with a sister and mother. MEDICATIONS: Listed. ALLERGIES: She has no known drug allergies. FAMILY HISTORY: Pertinent for heart disease. REVIEW OF SYSTEMS: As noted above. PHYSICAL EXAMINATION: Vital Signs: She is afebrile, heart rate 87, blood pressure 107/57. Extremities: She has pits of hidradenitis of both armpits. Both areas have an area fluctuance with purulent drainage. Lungs: Clear. Heart: Regular rate and rhythm. Abdomen: Soft. Extremities: No peripheral edema. Neurologic: She is awake and alert. DIAGNOSTICS/LABS: White count is 10,200. ASSESSMENT: Hidradenitis with some small subcutaneous abscesses in both axillae. PLAN: Will be incision and drainage in the morning. I have discussed this with her. cc: Eric Vásquez MD
[2018-08-17 06:10] LABS: AGAP 14; BUN 17 mg/dL (8-22); CHLORIDE 100 mmol/L (98-107); COSMO 281; CREATININE 0.6 mg/dL (0.5-0.9); ESTIMATED GFR > 60; GLUCOSE 196 mg/dL (70-104); POTASSIUM 3.9 mmol/L (3.5-5.1); SODIUM 137 mmol/L (136-145); TCO2 23 mmol/L (25-35)
[2018-08-17] MEDS: HUMALOG SUBQ SCH ×2 (06:17→11:45)
[2018-08-17] MEDS ORDERED: PRILOSEC PO SCH (07:00)
[2018-08-17] MEDS: XOPENEX NEB INH SCH ×3 (07:35→15:13)
--- NOTE | 2018-08-17 07:41 | Diag Imaging Result Doc PS360 ---
CHEST-PORTABLE - 08/17/2018 INDICATION: dyspnea COMPARISON: 08/15/2018 FINDINGS: Stable moderate cardiomegaly. Pulmonary vascularity is top normal. No infiltrates or edema. No pneumothorax or pleural effusion. IMPRESSION: Cardiomegaly. Electronically signed by Emery Solis 08/17/2018 7:38 AM
[2018-08-17] MEDS: KLOR-CON PO SCH (08:15)
[2018-08-17] MEDS: COREG PO SCH (08:15)
[2018-08-17] MEDS: DOXYCYCLINE 100 MG in NS 250 ML IV SCH (08:15)
[2018-08-17] MEDS: LASIX PO SCH (08:15)
[2018-08-17] MEDS: COZAAR PO SCH (08:15)
[2018-08-17] MEDS: LOVENOX SUBQ SCH (08:15)
[2018-08-17] MEDS ORDERED: REGLAN ONE (10:09)
[2018-08-17] MEDS ORDERED: VERSED ONE (10:09)
[2018-08-17] MEDS ORDERED: PEPCID ONE (10:10)
--- NOTE | 2018-08-17 10:29 | PROGRESS NOTE ---
DATE: 08/17/2018 SUBJECTIVE: Patient resting comfortably in bed. She is still complaining of bilateral axillary pain. She has multiple nodules bilaterally and she is draining some pus, mostly on the left side. It looks like this is hidradenitis suppurative. I started this patient on doxycycline. Surgery Department will go to the OR to drain it. OBJECTIVE: Vital Signs: Temperature 98.2 degrees, pulse 97, respiratory rate 19, blood pressure 106/73, oxygen saturation 100% on room air. HEENT: Head normocephalic, no trauma. PERRLA. Neck: Supple. No JVD. No masses. Central trachea. Chest: Clear to auscultation. Some rales at the bases. Axillary area with multiple nodules bilaterally. Some of then and painful to palpation. On the left side, there is one that is draining pus. Abdomen: Soft. Some discomfort to palpation at the level of the epigastric area, but better compared with yesterday. Positive bowel sounds. Extremities: No edema, no clubbing, no cyanosis. Neurological: The patient is alert and oriented x3. No focal deficits. LABORATORY DATA: Sodium 137, potassium 3.9, chloride 100, bicarbonate 23, BUN 17, creatinine 0.6, glucose 196, calcium 9. ASSESSMENT AND PLAN: 1. Congestive heart failure exacerbation, acute. Her ejection fraction is around 35% with global hypokinesis, also she has pulmonary hypertension. Today she is not having any cardiopulmonary symptoms. A stress test yesterday showed no evidence of abnormal extracardiac uptake, perfusion imaging seems to demonstrate 2 separate defects, the 1st is a moderate-sized moderate-intensity, fixed defect in the mid and distal anterior septum. The 2nd defect is moderate to large in size, mild to moderate in intensity, and located in the inferolateral base to the inferolateral apex, it appears to improve somewhat on stress imaging, there does not appear to be any clear evidence of ischemic changes, there is a reduction in LV systolic function with a calculated ejection fraction of 36%, there is global hypokinesis, severe dilatation of the left ventricle with an end-diastolic volume of 343 and end systolic volume of 220. 2. Type 2 diabetes, hemoglobin A1c around 8.6. She has been on metformin at home which probably I will increase it from 500 twice a day to 1000 twice a day. 3. Bilateral hidradenitis suppurative. She will go to the OR today to drain some of the nodules. On the left side, there is clear evidence that patient is draining some pus. Continue with antibiotics. 4. Hypertension, stable. 5. Tobacco abuse. This patient has been highly advised against tobacco use. I will continue with daily cessation education. 6. Drug use, cannabinoids, aware. She has been advised against drug use. I will continue with daily cessation education as well. 7. Pulmonary hypertension per echocardiogram, with a pulmonary artery systolic pressure around 74 mmHg. We will continue with diuresis. 8. Possible gastroesophageal reflux disease. I started this patient on PPIs and she is feeling better. I will continue with same management. cc: Kewrin Doll MD
[2018-08-17] MEDS ORDERED: DIPRIVAN 1% ONE (11:03)
[2018-08-17] MEDS ORDERED: FENTANYL ONE (11:05)
[2018-08-17 11:46] VITALS: BP 119/24
--- NOTE | 2018-08-17 17:07 | OPERATIVE NOTE ---
PROCEDURE DATE: 08/17/2018 PROCEDURE PERFORMED: 1. Excision of hidradenitis right axilla. 2. Incision and drainage of subcutaneous abscess left axilla. PREOPERATIVE DIAGNOSIS: Bilateral axillary hidradenitis. POSTOP DIAGNOSIS: Bilateral axillary hidradenitis with abscess left axilla. DESCRIPTION OF PROCEDURE: Satisfactory general anesthesia was achieved. Both axillae were prepped and draped in a sterile fashion. There was no undrained purulence in the right axilla. There was an area of inflammation. We elliptically excised this area that included significant hidradenitis and we excised the tracts into the subcutaneous tissue. We achieved satisfactory hemostasis. We were able to reapproximate the wound interrupted 3-0 nylon stitches x3. Sterile dressing was applied. The left axilla had an abscess so we simply I and D'd the abscess in the left axilla. It was subcutaneous abscess. After doing that, we debrided the abscess cavity with a gauze and then copiously irrigated it. Acceptable hemostasis was achieved. We packed it with gauze and covered with sterile 4 x 4s. She tolerated procedure satisfactorily. Was sent to the recovery room in satisfactory condition. cc: Eric Vásquez MD
--- NOTE | 2018-08-17 18:56 | DISCHARGE SUMMARY ---
ADMISSION DATE: 08/14/2018 DISCHARGE DATE: 08/17/2018 ADMISSION DIAGNOSES: 1. Dyspnea. 2. New-onset congestive heart failure. 3. Community-acquired pneumonia. 4. Type 2 diabetes. 5. Nicotine dependence. DISCHARGE DIAGNOSES: 1. Dyspnea. 2. New-onset congestive heart failure. 3. Community-acquired pneumonia. 4. Type 2 diabetes. 5. Nicotine dependence. 6. Pulmonary hypertension. 7. Bilateral hidradenitis suppurativa. CONSULTATIONS: Dr. Esteban Turcios with Cardiology, Dr. Eric Vásquez with Surgery. DIAGNOSTIC PROCEDURES AND FINDINGS: EKG 08/13/2018: Sinus tachycardia. No acute ST or T abnormalities. Chest x-ray 08/13/2018: Pulmonary edema, congestive heart failure, pneumonitis not excluded. CTA of the chest on 08/14/2018: No evidence of PE. Congestive heart failure and pulmonary edema noted. Mildly prominent bilateral axillary lymph nodes. Echocardiogram on 08/14/2018: Mild TR, PA systolic pressure 74 mmHg, pulmonary hypertension noted. EF 35%, global hypokinesis. Myocardial perfusion scan on 08/16/2018: Two separate defects versus moderate- sized, [id number], fixed defect in the mid and distal anterior septum. The second defect is moderate to large in size, mild to moderate in intensity, and is located in the inferolateral base to the inferolateral apex. It appears to improve somewhat on stress imaging. EF 36%. Severe dilatation of the left ventricle. OPERATIVE PROCEDURE: Surgical drainage of bilateral hidradenitis. HOSPITAL COURSE: Ms. Handy is a 28-year-old female who has a history of morbid obesity, nicotine and marijuana dependence, hypertension and insulin-dependent type 2 diabetes. She came to the ER with dyspnea for the past month to month and a half prior to admission. She also had worsening lower extremity edema along with abdominal distention and bloating. She reported significant worsening of shortness of breath which brought her to the ER. In the ER she had a chest x-ray which showed mild pulmonary edema and cardiomegaly. Her laboratory data did show a proBNP of 1529. She did have tachypnea and some mild respiratory distress, so she was sent from [place], where she was initially admitted, to the [facility]. We consulted Cardiology, who did an echo which revealed new-onset systolic failure with EF of 30%. Stress test was done which did show some fixed defects; however, there was no evidence of clear ischemic changes. She was diuresed and ruled out for NH with cardiac enzymes. CTA was also done, which did not show any PE. Given the systolic failure, she was started on the appropriate regimen of medications, and she diuresed well. She was complaining also of bilateral axillary nodules with a history of hidradenitis. We consulted Surgery, who performed surgical drainage of abscesses in both axillae. We did do significant nicotine cessation education. Her cumulative intake and output totals during her admission were -5.8 L. Her breathing is improved, and she has been optimized on medications, and is now stable for discharge home. DISCHARGE MEDICATIONS: 1. Carvedilol 6.25 mg p.o. b.i.d. 2. Losartan 25 mg daily. 3. Doxycycline 100 mg p.o. b.i.d. for 8 days. 4. Lasix 40 mg p.o. daily. 5. Prilosec 40 mg daily. 6. Tramadol 50 mg p.o. every 6. 7. Klor-Con 10 mEq p.o. daily. 8. Glucophage 1000 mg p.o. b.i.d. DISCHARGE VITAL SIGNS: Blood pressure is 119/24, heart rate 104, respiratory rate 20, O2 saturation 96% on room air, temperature 97.3. DISCHARGE DIET: Diabetic. DISCHARGE ACTIVITY: Resume activity as tolerated. DISPOSITION AND OTHER DISCHARGE INSTRUCTIONS: The patient is discharged home to self care. She is to follow up with Dr. Turcios regarding her heart failure and with Dr. Vásquez regarding the postoperative care of the hidradenitis. She is to continue all medications as directed. We have counseled her extensively on nicotine and marijuana cessation. All questions have been answered. Discharge time: Greater than 35 minutes. Dictated by DAVIS Cates for Kerwin Doll MD cc: DAVIS Cates MD Robert C. Walker, MD William D. Denney, MD
== END 2018-08-17 16:15 | disposition home or self-care (01) | DRG 264 ==
LOC: P.ED 20:46 → SUATTDRO 08-14 04:30 → P.ICU 08-14 04:30 → ICU 08-14 12:00 → 3S 08-16 16:00
PROVIDERS: ATTEND Internal Medicine
CPT/HCPCS: 71010; 71045; 71275; 78452; 80048; 80053; 80101; 80301; 80307; 80324; 80345; 80346; 80353; 80358; 80361; 80365; 81001; 81025; 82550; 82805; 82948; 83036; 83605; 83735; 83880; 83992; 84145; 84443; 84484; 85025; 85379; 85610; 85651; 85730; 86140; 87040; 87088; 93005; 93017; 93306; 94640; 94761; 96361; 96365; 96366; 99285; A9270; A9500; G0431; G0434; G0479; G0480; J0696; J1650; J1815; J1940; J1956; J2250; J2270; J2765; J2785; J3010; J7030; J7050; Q9967; S0028; XXXXX

== ENCOUNTER 2019-05-06 16:00 | Inpatient (IN) ==
[2019-05-06 17:21] LABS: URINE SOURCE CLEAN CATCH
[2019-05-06 17:24] LABS: BASO# 0.05 X1000 (0.0-0.2); BASO% 0.5 % (0.0-0.8); EOS# 0.32 X1000 (0.0-0.7); EOS% 3.3 % (0.0-10.0); HEMATOCRIT 37.2 % (37.0-47.0); HEMOGLOBIN 11.9 g/dL (12.0-16.0); IMM GRAN# 0.02 X1000 (0.0-0.04); IMM GRAN% 0.2 % (0.0-0.5); LYMPH# 4.92 X1000 (1.2-3.4); LYMPH% 50.1 % (20.5-51.1); MCH 27.5 PG (27-31); MCV 85.9 FL (81-99); MONO# 0.43 X1000 (0.11-0.59); MONO% 4.4 % (1.7-9.3); MPV 9.6 FL (7.4-10.4); NEUT# 4.08 X1000 (1.4-6.5); NEUT% 41.5 % (42.2-75.2); PLT 311 X1000 (130-400); RBC 4.33 XMIL (4.2-5.4); RDW 13.4 % (11.5-14.5); WBC 9.82 X1000 (4.8-10.8)
[2019-05-06 17:25] LABS: BILIRUBIN URINE NEGATIVE (NEGATIVE); BLOOD URINE NEGATIVE (NEGATIVE); COLOR YELLOW; GLUCOSE URINE NEGATIVE (NEGATIVE); KETONE URINE NEGATIVE (NEGATIVE); LEUKOCYTES URINE NEGATIVE (NEGATIVE); NITRITE URINE NEGATIVE (NEGATIVE); PH URINE 6.5; PROTEIN URINE NEGATIVE (NEGATIVE); SP GRAVITY URINE 1.009; TURBIDITY URINE CLEAR (CLEAR); UR EPITHELIAL CELLS <10 /HPF (<10); URINE BACTERIA NEGATIVE /HPF; URINE RBC <10 /HPF (<10); URINE WBC <10 /HPF (<10); UROBILINOGEN URINE NORMAL (NORMAL)
[2019-05-06] MEDS ORDERED: TORADOL IM ONE (17:49)
[2019-05-06 17:57] LABS: AGAP 13; ALB/GLOB RATIO 0.9; ALBUMIN 3.5 g/dL (3.5-5.0); ALKALINE PHOSPHATASE 77 U/L (32-104); BUN 10 mg/dL (8-22); CALCIUM 8.9 mg/dL (8.8-10.2); CHLORIDE 102 mmol/L (98-107); COSMO 271; CREATININE 0.7 mg/dL (0.5-0.9); ESTIMATED GFR > 60; GLUCOSE 140 mg/dL (70-104); GOT 17 U/L (10-30); GPT 19 U/L (10-36); SODIUM 135 mmol/L (136-145); TCO2 20 mmol/L (25-35); TOTAL BILIRUBIN 0.79 mg/dL (0.20-1.00); TOTAL PROTEIN 7.4 g/dL (6.3-8.3)
[2019-05-06] MEDS ORDERED: ALBUTEROL NEB INH ONE (18:01)
--- NOTE | 2019-05-06 18:03 | Diag Imaging Result Doc PS360 ---
EXAM: CHEST-2 VIEWS 05/06/2019 HISTORY: SOB TECHNIQUE: Two views the chest COMMENT: There is ill-defined opacity present in the lung bases. There is cardiomegaly. The pulmonary opacities were not present on 02/09/2019. IMPRESSION: Cardiomegaly and pulmonary edema. Electronically signed by Ted Maria 05/06/2019 6:01 PM
[2019-05-06] MEDS ORDERED: FLUORI-I-STRIP OPH ONE (18:15)
[2019-05-06] MEDS ORDERED: ALCAINE 0.5% OPHTH SOLN LEFT EYE ONE (18:15)
--- NOTE | 2019-05-06 18:33 | EKG Report ---
Test Performed on : 05/06/2019 5:21:47 PM Test Reason : SOB Blood Pressure : / mmHG Vent. Rate : 109 BPM Atrial Rate : 109 BPM P-R Int : 156 ms QRS Dur : 088 ms QT Int : 354 ms P-R-T Axes : 063 014 024 degrees QTc Int : 476 ms Sinus tachycardia. Possible Left atrial enlargement Cannot rule out Anterior infarct , age undetermined Abnormal ECG When compared with ECG of 14-AUG-2018 09:22, Nonspecific T wave abnormality now evident in Anterior leads Unconfirmed Result
--- NOTE | 2019-05-06 19:00 | Diag Imaging Result Doc PS360 ---
EXAM: CT MAXILLOFACIAL(SINUS) W/O CO 05/06/2019 HISTORY: Left Orbital Swelling after Fall TECHNIQUE: CT of the facial bones COMMENT: The mandible is intact. There is a mucous retention cyst in the right maxillary sinus, otherwise the paranasal sinuses are clear. No evidence of acute fracture or other definite bony abnormality is present. There is superficial soft tissue swelling over the left orbit. The globes are intact and there is no evidence of retrobulbar are abnormality. IMPRESSION: No evidence of acute bony abnormality. Superficial soft tissue swelling over the left orbit. Electronically signed by Ted Maria 05/06/2019 6:58 PM
[2019-05-06 19:42] LABS: FREE T4 1.42 ng/dL (0.93-1.70); TSH 0.96 uIUmL (0.27-4.20)
--- NOTE | 2019-05-06 22:08 | PROVIDER DOCUMENTATION ---
This chart was entered by Leeanna Oakes Scribe, acting as scribe for Du Huber MD. HPI-General Adult - General Chief Complaint: General Adult Stated Complaint: L-EYE INJURY/HEART RACING/SOB/FEMALE Time Seen by Provider: 05/06/19 16:59 Source: patient Allergies/Adverse Reactions: Patient Allergies Allergy/AdvReac Type Severity Reaction Status Date / Time No Known Allergies Allergy Verified 02/09/19 17:35 Home Medications: Home Medication List Medication Instructions Recorded Confirmed Last Taken Type Ofloxacin 0.3% Oph Solution 1 drp LEFT EYE Q6HR 4 Days #1 05/06/19 Unknown Rx [Ocuflox 0.3% Oph Solution] bottle - History of Present Illness -Gen Adult Nature of Presenting Problems: 29 yo F presents to the ed with multiple complaints. pt sts she fell 2 days prior and hit her left eye against a door-knob and has swelling to upper and lower lid; also reports intermittent sob, decreased urination, productive cough and MUÑOZ. Pt on exam is in no obvious distress. Location of Pain/Injury: reports: head (MUÑOZ), face (orbital area left) Quality of Pain: reports: aching, pressure Severity: reports: moderate Onset/Duration: reports: 2 days ago Timing: reports: still present, improving Context/Activities at Onset: reports: light activity Modifying Factors: improves with: nothing Associated Symptoms: reports: cough, EENT symptoms, genitourinary problems, headaches, malaise, shortness of breath. denies: back/neck pain, chest pain, diarrhea, fever/chills, vomiting Similar Symptoms Previously?: No Recently seen or treated by another doctor?: No Review of Systems - Adult - REVIEW OF SYSTEMS - ADULT Constitutional: denies: chills, fever Eyes: reports: see HPI, eye pain, redness Ears, Nose, Mouth & Throat: reports: no symptoms reported Cardiovascular: denies: chest pain, palpitations Respiratory: reports: see HPI, cough, dyspnea on exertion, shortness of breath. denies: wheezing Gastrointestinal: denies: abdominal pain, diarrhea, nausea, vomiting Genitourinary: reports: see HPI, dysuria, hesitency Musculoskeletal: denies: back pain, neck pain Integumentary: reports: no symptoms reported Neurological: reports: see HPI, headache/migraines. denies: ataxia, dizziness/vertigo, slurred speech, syncope Psychiatric: reports: no symptoms reported Endocrine: reports: no symptoms reported Hematologic/Lymphatic: reports: no symptoms reported Allergic/Immunologic: reports: no symptoms reported All Other Systems: Reviewed and Negative Past History - Adult - PAST MEDICAL HISTORY-ADULT Review of Records: reports: Old Records Reviewed, Nursing Assessment Review, Medications Reviewed, Social history reviewed & non-contributory. Major Childhood Illnesses: reports: denies history Cardiovascular: reports: arrhythmia, CHF, HTN Respiratory: reports: denies history Gastrointestinal: reports: GERD Obstetrical/Gynecological: reports: denies history Genitourinary: reports: kidney disease Musculoskeletal: reports: chronic pain Neurological: reports: headaches/migraines Psychiatric: reports: denies history Endocrine/Immune: reports: Diabetes (gestational only) Diabetes Type: Type 2 Other Conditions: reports: denies history - PRIOR SURGERIES/PROCEDURES Surgical/Procedure History: reports: reviewed, not pertinent - IMMUNIZATION STATUS Childhood Immunizations: See Nurse Assessment Flu Vaccine: See Nurse Assessment - FAMILY HISTORY Family History: reviewed, not pertinent - SOCIAL HISTORY Smoking: cigarettes, less than 1 pack/day Provider spent 3-5 mins advising pt. on dangers of tobacco.: Discussed manners to quit use, and f/u contacts for add'l counseling. Physical Exam-General - PHYSICAL EXAM-ADULT Initial Vital Signs Reviewed: Yes - CONSTITUTIONAL General Appearance: appears well, alert, no apparent distress, obese - EYES Eyes: PERRL/EOMI (pt is sensitive to light), subconjunctival hemorrhage, other (swelling noted to upper and lower lid) - HEAD, EARS, NOSE, MOUTH & THROAT HENMT: moist mucous membranes - NECK Neck: non-tender, full range of motion, supple, normal inspection - RESPIRATORY Respiratory: chest non-tender, lungs clear, normal breath sounds - CARDIOVASCULAR Cardiovascular: normal peripheral pulses, tachycardia (104) - CHEST (BREASTS) Chest/Breast: deferred - GASTROINTESTINAL (ABDOMEN) Abdominal Exam: normal bowel sounds, non tender, soft - GENITOURINARY Female Genitalia/Pelvic Exam: deferred Rectal Exam: deferred Hemoccult Exam: deferred - LYMPHATIC Lymphatic: no adenopathy - MUSCULOSKELETAL Back Exam: no CVA tenderness, no vertebral tenderness Extremity: normal range of motion, non-tender, normal gait, normal inspection - SKIN Integumentary: normal color, normal turgor, warm/dry - NEUROLOGIC Neurologic: grossly normal - PSYCHIATRIC Psych/Mental Status: normal mood/affect, normal thought content, normal thought process, oriented x 3 Progress - PLAN OF CARE/RESULTS Progress/Plan/Lab Results: Vital Signs - 8 hr 05/06/19 16:20 Temperature 99.3 F Pulse Rate 104 H Respiratory Rate 18 Blood Pressure 124/85 O2 Sat by Pulse Oximetry 99 Bedside Urine ED: Urine Bedside Start: 05/06/19 17:17 Freq: Status: Active Protocol: Activity Type Activity Date Activity User E-Sign Co-Sign Detail Recorded Client Recorded Date Recorded By Document 05/06/19 17:17 [id number] 05/06/19 17:18 [id number] 05/06/19 17:17 Point of Care [Bedside Point of Care] -Lot # [id number] - Results Negative -Control Line Visible? Yes Laboratory Results - last 24 hr 05/06/19 05/06/19 17:05 17:05 WBC 9.82 RBC 4.33 Hgb 11.9 L Hct 37.2 MCV 85.9 MCH 27.5 MCHC 32.0 L RDW Std Deviation 13.4 Plt Count 311 MPV 9.6 Immature Gran % (Auto) 0.2 Neut % (Auto) 41.5 L Lymph % (Auto) 50.1 [place] % (Auto) 4.4 Eos % (Auto) 3.3 Baso % (Auto) 0.5 Immature Gran # (Auto) 0.02 Neut # (Auto) 4.08 Lymph # (Auto) 4.92 H [place] # (Auto) 0.43 Eos # (Auto) 0.32 Baso # (Auto) 0.05 Urine Source CLEAN CATCH Orders Category Date Time Status Nursing- Obtain EKG ONCE Care 05/06/19 17:01 Active Nursing- Obtain EKG once Care 05/06/19 17:00 Active CHEST-2 VIEWS [RAD] Stat Exams 05/06/19 17:00 Ordered CBC WITH ELECTRONIC DIFF [HEME] Stat Lab 05/06/19 17:05 Completed COMPREHENSIVE METABOLIC PANEL [CHEM] Stat Lab 05/06/19 17:05 Received FREE T4 Stat Lab 05/06/19 17:05 Received TEST-URINE [PREG] Stat Lab 05/06/19 17:05 Received TSH Stat Lab 05/06/19 17:05 Received URINALYSIS W/POSS RFLX CULT [URINALYSIS] Stat Lab 05/06/19 17:05 Results EKG [EKG] Stat Ther 05/06/19 17:00 Ordered Used Wood's lamp at bedside; pt does have obvious corneal abrasion fairly exte nsive across the [place]; pt will receive Ofloxacin drops; also discussed her labs with hospitalist; given BNP >2000, pulm edema noted on CXR, and SOB, wanted to admit for diuresis and monitoring; hospitalist accepts the case for additional management. Result Diagrams: 05/06/19 17:05 05/06/19 17:05 - EKG 1 Time of EKG reading by physician:: 17:21 EKG Read and Signed by:: Du Huber EKG Interpretation (*Must complete 3 of following elements*): Abnormal Rate: 109 Rhythm: sinus tachycardia [place]: normal QRS: other (possible left atrial enlargement) NE Interval: normal ST Wave: normal Comments: cannot - XRAY 1 XRAY Study: Chest Impression: See EMR Report ("EXAM: CHEST-2 VIEWS 05/06/2019 HISTORY: SOB TECHNIQUE: Two views the chest COMMENT: There is ill-defined opacity present in the lung bases. There is cardiomegaly. The pulmonary opacities were not present on 02/09/2019. IMPRESSION: Cardiomegaly and pulmonary edema. Electronically signed by Ted Maria 05/06/2019 6:01 PM") - CT/MRI 1 CT Study: other (maxillofacial) Impression: See EMR Report (EXAM: CT MAXILLOFACIAL(SINUS) W/O CO 05/06/2019 HISTORY: Left Orbital Swelling after Fall TECHNIQUE: CT of the facial bones COMMENT: The mandible is intact. There is a mucous retention cyst in the right maxillary sinus, otherwise the paranasal sinuses are clear. No evidence of acute fracture or other definite bony abnormality is present. There is superficial soft tissue swelling over the left orbit. The globes are intact and there is no evidence of retrobulbar are abnormality. IMPRESSION: No evidence of acute bony abnormality. Superficial soft tissue swelling over the left orbit. Electronically signed by Ted Maria 05/06/2019 6:58 PM) - CONSULTS/PCP/HOSPITALIST Notification #1 *Consult/PCP/Hospitalist*: Dr. Ruiz Time Discussed: 19:20 Consult Disposition: Admit Procedures - EYE PROCEDURES Alcaine Drops Administered: Yes Eye Exam: Fluorescein Strip, Wood's Lamp Antibiotic Oinment/Drops Admininstered: Left Eye Procedure Comment: positive staining - abrasions noted on the eye Departure - Departure Date of Disposition Decision: 05/06/19 Time of Disposition Decision: 20:25 DIAGNOSIS: Acute exacerbation of congestive heart failure Qualifiers: Heart failure type: unspecified Qualified Code(s): I50.9 - Heart failure, unspecified Corneal abrasion, left Qualifiers: Encounter type: initial encounter Qualified Code(s): S05.02XA - Injury of conjunctiva and corneal abrasion without foreign body, left eye, initial encounter Disposition: ADMITTED INPATIENT 09 Certified Medical Emergency: Emergent Condition: Stable Prescriptions: Ofloxacin 0.3% Oph Solution [Ocuflox 0.3% Oph Solution] 1 drp LEFT EYE Q6HR 4 Days #1 bottle Prescription Printed Referrals and Follow-Ups: None,PCP [Primary Care Provider] - - Critical Care Note This patient required my direct & personal management of CC.: No Attestation - Physician/ FAUSTO Attestation Patient care was provided by Advanced Practice Provider:: No The physician spent face to face time with patient:: Yes Advanced Practice Provider documentation review:: Supervising physician onsite and consulted in the evaluation and care of this patient. The physician did have a face to face encounter with the patient. This chart was documented by the indicated scribe, (Leeanna Oakes Scribe) and accurately reflects the services I performed and decisions made by me, Du Huber MD, as attested by the provider's signature.
[2019-05-06] MEDS: LASIX IV SCH (23:03)
[2019-05-07] MEDS: HUMALOG SUBQ SCH ×4 (06:48→21:35)
--- NOTE | 2019-05-07 06:48 | HISTORY AND PHYSICAL ---
CHIEF COMPLAINT: Shortness of breath which she says she has had for about 3 days. HISTORY OF PRESENT ILLNESS: Ms. Anand Handy is a 29-year-old female, who has a history of diabetes mellitus as well as hypertension. She presented to the hospital because of shortness of breath which has been ongoing for the last 3 days. She denies any weight gain or leg swelling. No chest pain. She admits to having palpitations. X-ray of the chest at the time of presentation showed evidence of cardiomegaly with evidence of pulmonary edema. ProBNP level was found to be 2872. The patient also reports injury to the left eye, and has evidence of hemorrhage to that eye. She was seen and evaluated in the ER. She has now been admitted to the floor now for further management. PAST MEDICAL HISTORY: Diabetes mellitus, hypertension, and congestive heart failure. SOCIAL HISTORY: She smokes cigarettes. No alcohol or drug use. ALLERGIES: No known drug allergies. PAST SURGICAL HISTORY: She has had bilateral hidradenitis suppurativa both axillary region. She has had surgery for those in the past. FAMILY HISTORY: Positive for diabetes as well as hypertension. MEDICATIONS: None. REVIEW OF SYSTEMS: Constitutional: No fever. CRIMINAL RECORDS TECHNICIAN: Headaches. Eyes: No blurred vision. Respiratory: She has cough. Cardiovascular: See history of present illness. GI: Nausea with vomiting, and also diarrhea with abdominal pain. : She has dysuria. Musculoskeletal: No joint pains. Hematology: No bleeding problems. Dermatology: No skin lesions. Psychiatric: No anxiety or depression. Endocrinology: She has diabetes, but no thyroid disease. PHYSICAL EXAMINATION: VITAL SIGNS: Temperature 97.7 degrees, pulses 105, respirations 15, blood pressure 100/72, and oxygen saturation is 95%. HEENT: She is atraumatic, normocephalic. On the left eye, she does have evidence of subconjunctival hemorrhage in the left eye. She has whitish coat on her tongue. NECK: No jugular venous distention. No lymphadenopathy or thyromegaly. CARDIOVASCULAR: S1, S2 with possible S3. RESPIRATORY: Good air entry bilaterally. ABDOMEN: Soft and nontender. No masses felt. EXTREMITIES: No evidence of edema. CENTRAL NERVOUS SYSTEM: No obvious focal deficit noted. LABORATORY STUDIES: Labs on WBC 9.8, hematocrit 37.2 with a platelet count of 311,000. Sodium is 135, potassium 4.0, chloride 102, bicarb 20, BUN is 10 and creatinine 0.7. Glucose 140. ProBNP 2872. Chest x-ray shows evidence of cardiomegaly with pulmonary edema. ASSESSMENT AND PLAN: 1. Acute systolic congestive heart failure. We will maintain patient on diuretics. Monitor intake and output as well as daily weights. The patient will need to be on beta-liza as well as James. She will need CHF education. 2. Hypertension. Optimize blood pressure control using oral agent. 3. Diabetes mellitus. Maintain patient on sliding scale insulin. Monitor blood sugar levels. Check hemoglobin A1c. Recommend a diabetic diet. 4. Left subconjunctival hemorrhage. Consult with Ophthalmology. The patient did have a fluorescein strip exam done in the ER which showed evidence of possible abrasion. 5. Deep vein thrombosis prophylaxis. Sequential compression devices. 6. Gastrointestinal prophylaxis. Proton pump inhibitor. cc: Jaycob Ruiz MD
[2019-05-07] MEDS: PROTONIX PO SCH (06:51)
[2019-05-07] MEDS: LASIX IV SCH ×2 (09:47→21:21)
[2019-05-07] MEDS ORDERED: TYLENOL PO PRN (11:47)
[2019-05-07] MEDS: COREG PO SCH ×2 (18:45→21:26)
[2019-05-07] MEDS ORDERED: CILOXAN OPHTH OINT LEFT EYE SCH ×2 (19:15→21:00)
--- NOTE | 2019-05-07 20:11 | PROGRESS NOTE ---
DATE: 05/07/2019 INTERVAL HISTORY: Ms. Handy was admitted for congestive heart failure exacerbation and elevated proBNP as well as tachycardia. SUBJECTIVE: She is feeling better. She states she ran out of most of her medications for 2 months and has not been taking any of the medications. VITALS: Temperature 98.6 degrees, pulse 79, respiratory 23, blood pressure 108/84, saturating 98% room air. PHYSICAL EXAMINATION: Not in acute distress. Oral cavity is moist.Lungs: Air entry bilaterally equal. No wheeze, rhonchi. Cardiovascular: S1, S2. No murmur or gallop. Abdomen: Soft, nontender. Extremities: No lower extremity edema. Eyes: She does not have jugular venous distention. She does have an abrasion on the left eye over the upper eyelid, I could not see any damage to palpebral conjunctiva on inversion of eye bleed. She does not have any obvious foreign body that I could see. She had left subconjunctival hemorrhage. She has mild photophobia. Her swelling and pain in the left eye has been decreasing. LABORATORY DATA: No new labs today. Blood glucose 108. ProBNP was 2800. Microbiology: Influenza screen was negative. ASSESSMENT AND PLAN: 1. Acute on chronic systolic congestive heart failure exacerbation due to medication noncompliance. Stop intravenous Lasix after tonight's dose. Start her on oral Lasix. Continue carvedilol and losartan. She will need outpatient regular follow-up. 2. Traumatic left eye injury with corneal abrasion. The patient's symptoms are already getting better. I will start her on topical ciprofloxacin ointment 3 times a day and follow up tomorrow. She may need outpatient ophthalmology evaluation if she does not get better. DISPOSITION: Observe patient overnight and possibly discharge in 24 hours. She is in agreement with the plan. cc: Amrit Paul MD
[2019-05-07] MEDS: ERYTHROMYCIN OPH OINTMENT OPH SCH (21:18)
[2019-05-07] MEDS: COZAAR PO SCH (21:39)
[2019-05-08] MEDS: PROTONIX PO SCH (06:41)
[2019-05-08] MEDS: HUMALOG SUBQ SCH ×2 (06:52→11:15)
[2019-05-08] MEDS ORDERED: LASIX PO SCH (09:00)
[2019-05-08] MEDS: COZAAR PO SCH (09:36)
[2019-05-08] MEDS: ERYTHROMYCIN OPH OINTMENT OPH SCH ×2 (09:36→12:29)
[2019-05-08] MEDS: COREG PO SCH (09:36)
[2019-05-08 11:25] VITALS: BP 120/81
[2019-05-08] MEDS ORDERED: GLUCOPHAGE PO SCH (17:00)
--- NOTE | 2019-05-08 20:56 | DISCHARGE SUMMARY ---
ADMISSION DATE: 05/06/2019 DISCHARGE DATE: 05/08/2019 DISCHARGE DISPOSITION: Home. DISCHARGE CONDITION: Hemodynamically stable. The patient denies any shortness of breath or chest pain. Her left eye pain and photophobia has significant decreased. DISCHARGE DIAGNOSES: 1. Acute on chronic systolic congestive heart failure exacerbation due to medication noncompliance. 2. Traumatic left eye injury with corneal abrasion. 3. Eec-bgldhwn-tbxkjzqlh diabetes mellitus. DISCHARGE MEDICATIONS: 1. Carvedilol 6.25 mg every 12 hours. 2. Losartan 25 mg daily. 3. Erythromycin ophthalmic ointment 1 application 4 times a day, 1 tube. 4. Metformin 5 mg b.i.d. 5. Furosemide 40 mg daily. VITALS: At time of discharge temperature 98 degrees, pulse 102, respiratory 24, blood pressure 120/81, saturating 100% room air. PHYSICAL EXAMINATION: General: Not in acute distress. Oral cavity is moist. Lungs: Air entry bilaterally equal. No wheeze or crackles. Heart: Normal, no murmur, rub, or gallop. Abdomen: Soft, nontender. Extremity: No lower extremity edema. She is alert and oriented x3. She does have left-sided. She does have left-sided subconjunctival hemorrhage. Pupils are bilaterally equal reacting. Her photophobia and pain has significantly decreased. Extraocular movements are intact. There is a small abrasion over the left upper part with palpebra left upper eyelid, which is healing well. LABS: At the time of admission and discharge, hemoglobin 11.9, platelet 311,000, BUN 10, creatinine 0.7, blood glucose 166. ProBNP improved from 2800 on presentation to 1600 at the time of discharge. Troponin has been less than 20. No microbiological data except influenza screen which was negative. SIGNIFICANT IMAGING DURING HOSPITAL ADMISSION: Chest x-ray had suggested pulmonary edema and cardiomegaly. Maxillofacial CT head did not have any evidence of acute bony abnormality. There was superficial soft tissue swelling over the left orbit. Electrocardiogram on presentation had possible left atrial enlargement with sinus tachycardia. HOSPITAL COURSE SUMMARY: Ms. Handy is a 29-year-old lady with past medical history of systolic congestive heart failure with ejection fraction of 30%, bdf-moqyvzh-swrykautm diabetes mellitus, who came into the emergency room with 3 days history of shortness of breath. Apparently 2 days prior to presentation, patient also had tripped over a shoe and fell down and had hit a door knob on the left eye. Since then, she was also having some left eye pain. In the emergency room she was found to have temperature of 99.3 degrees, pulse of 104, respiratory rate of 14, blood pressure of 124/85, and she was saturating 99% on room air. The lab evaluation was initially unremarkable except proBNP of 2800. Chest x-ray on presentation had cardiomegaly and pulmonary edema, so admission was requested for need for diuresis. The patient was admitted for further management. Apparently, the patient had ran out of lot of her medications and was not able to take it for at least more than 2 months. She was restarted on intravenous Lasix and her home cardiovascular regimen including beta-liza and angiotensin receptor liza. The next day her symptoms improved and she was transitioned to oral Lasix and she was discharged home to have outpatient follow up with her regular post graduate intern, Dr. Turcios. She was noticed to have left-sided eyelid slight edema and injury due to trauma. Emergency room had performed fluorescein test and she was found to have a large corneal abrasion. She was started on erythromycin ointment and towards the discharge day, her photophobia and eye pain have significantly decreased. She was extensively counseled about seeing an kitchen supervisor if her symptoms do not improve in 24 hours. She understood it. She was also advised to have eye protective glasses while going out. She understood it. 25 minutes were spent discharging this patient. cc: Amrit Paul MD
== END 2019-05-08 14:41 | disposition home or self-care (01) | DRG 293 ==
LOC: ED 16:00 → SUATTDRO 22:40 → 3N 22:40
PROVIDERS: ATTEND Internal Medicine